=== PATIENT | male | born 1970 | race Hispanic/Latino ===

== ENCOUNTER 2019-02-26 08:42 | Day surgery (SDC) | payer OTHER ==
[2019-02-24 17:00] VITALS: BP 151/82
[2019-02-24 17:23] LABS: BASOPHILS % (AUTO) 0.6 % (0.0-5.0); EOSINOPHILS % (AUTO) 4.6 % (0.0-8.0); HEMATOCRIT 40.2 % (42-54); LYMPHOCYTES % (AUTO) 24.1 % (21.0-51.0); MEAN CORPUSCULAR HEMOGLOBIN 31.5 pg (27.0-33.0); MEAN CORPUSCULAR HGB CONC 34.4 g/dL (32.0-36.0); MEAN CORPUSCULAR VOLUME 91.6 fL (79-99); MONOCYTES % (AUTO) 8.2 % (3.0-13.0); NEUTROPHILS % (AUTO) 62.5 % (40.0-77.0); PLATELET COUNT (AUTO) 215 K/uL (130-400); RED BLOOD CELL COUNT(AUTO) 4.38 MIL/uL (4.50-6.20); RED CELL DISTRIBUTION WIDTH 13.4 % (11.0-15.5); WHITE BLOOD COUNT (AUTO) 6.9 K/uL (4.8-10.8)
[2019-02-24 17:24] LABS: APPEARANCE,URINE Clear (CLEAR); BILIRUBIN,URINE Negative (NEGATIVE); COLOR,URINE Yellow (YELLOW); GLUCOSE, URINE (UA) Negative (NEGATIVE); KETONES,URINE Negative (NEGATIVE); LEUKOCYTE ESTERASE ,URINE Negative (NEGATIVE); NITRATE,URINE Negative (NEGATIVE); OCCULT BLOOD,URINE Negative (NEGATIVE); PROTEIN,URINE Negative (NEGATIVE); UROBILINOGEN,URINE 0.2 mg/dL (0.2-1.0)
[2019-02-24 17:33] LABS: CREATININE 2.3 mg/dL (0.5-1.5); POTASSIUM 4.9 mmol/L (3.5-5.1)
--- NOTE | 2019-02-25 13:45 | NUR ---
CONSULT: MC AT DR. FAITH OFFICE MADE AWARE OF ABNORMAL LAB - BUN: 32 H AND CREAT: 2.3 H. STATED PATIENT HAS CHRONIC RENAL INSUFFICIENCY, WILL NOTIFY DR. CONTEH.
--- NOTE | 2019-02-25 13:45 | NUR ---
CONSULT: DR. NGUYEN MADE AWARE OF ABNORMAL LABS - BUN: 32 H, CREAT.: 2.3 H. MADE AWARE OF PATIENT HAVING CHRONIC RENAL INSUFFICIENCY AND NOT ORDERS GIVEN.
--- NOTE | 2019-02-25 14:00 | NUR ---
LABS: DR. CONTEH REQUESTING FOR LAB TO BE FAXED TO HIS OFFICE REGARDING BUN AND CREAT. FAXED LABS TO DR. CONTEH OFFICE AND NOTED THAT DR. NGUYEN - ANESTHESIOLOGIST MADE AWARE OF ABNORMAL LAB AND NO ORDERS GIVEN.
[~2019-02-26] VITALS: Ht 185.4 cm; Wt 105.1 kg
[2019-02-26] VITALS (17 sets, daily range): BP systolic 127–158; BP diastolic 65–93
[~2019-02-26 08:42] MED LIST: AEC81 PO; AMLO5TAB9 PO; CLON0.1T PO; FURO40TA5 PO; LABE200T5 PO; LISI40TA4 PO; SPIR25TA6 PO
[2019-02-26] MEDS ORDERED: LACTATED RINGERS 1000ML 1,000 ML IV ONE (09:38)
[2019-02-26] MEDS ORDERED: LIDOCAINE PF 2% 5ML ABBOJECT ONE (09:55)
[2019-02-26] MEDS ORDERED: MIDAZOLAM HCL 1 MG/ML 2ML VIAL ONE (09:56)
[2019-02-26] MEDS ORDERED: PROPOFOL 10 MG/ML 20ML VIAL IV ONE (09:56)
[2019-02-26] MEDS ORDERED: ROCURONIUM 10MG/1ML SYR 10 MG/ML ML ONE (09:56)
[2019-02-26] MEDS ORDERED: FENTANYL CITRATE PF 50 MCG/1 ML 2ML VIAL ONE ×2 (09:57→10:32)
[2019-02-26] MEDS ORDERED: BUPIVACAINE/PF 0.25% 30ML VIAL IJ ONE (10:12)
[2019-02-26] MEDS ORDERED: GLYCOPYRROLATE 1 MG/5 ML SYRINGE ONE (10:17)
[2019-02-26] MEDS ORDERED: ONDANSETRON HCL 4 MG/2 ML VIAL ONE (11:15)
== END 2019-02-26 13:25 | disposition home or self-care (01) ==
LOC: DAH 08:42
PROVIDERS: ATTEND Surgery
DX: K42.9 Umbilical hernia without obstruction or gangrene (principal); I13.0 Hypertensive heart and chronic kidney disease with heart failure and stage 1 through stage 4 chronic kidney disease, or unspecified chronic kidney disease; N18.9 Chronic kidney disease, unspecified; I50.9 Heart failure, unspecified
CPT/HCPCS: 36415; 49585; 80048; 81003; 85025; A4450; A4452; A4606; C1781; J2001; J2250; J2405; J2704; J3010 ×2; J3490 ×2; J7120 ×2

== ENCOUNTER 2019-06-22 10:52 | Emergency (ER) | payer OTHER ==
[2019-06-22] MEDS ORDERED: ASPIRIN 325 MG TABLET ONE (11:05)
[2019-06-22 11:16] LABS: BASOPHILS % (AUTO) 1.2 % (0.0-5.0); EOSINOPHILS % (AUTO) 5.2 % (0.0-8.0); HEMATOCRIT 43.9 % (42-54); LYMPHOCYTES % (AUTO) 26.6 % (21.0-51.0); MEAN CORPUSCULAR HEMOGLOBIN 31.5 pg (27.0-33.0); MONOCYTES % (AUTO) 10.9 % (3.0-13.0); NEUTROPHILS % (AUTO) 56.1 % (40.0-77.0); PLATELET COUNT (AUTO) 199 K/uL (130-400); RED BLOOD CELL COUNT(AUTO) 4.88 MIL/uL (4.50-6.20); RED CELL DISTRIBUTION WIDTH 12.9 % (11.0-15.5); WHITE BLOOD COUNT (AUTO) 6.9 K/uL (4.8-10.8)
[2019-06-22 11:26] LABS: CREATININE 2.5 mg/dL (0.5-1.5); POTASSIUM 3.1 mmol/L (3.5-5.1)
[2019-06-22 11:31] LABS: BILIRUBIN,TOTAL 0.9 mg/dL (0.2-1.0); TOTAL PROTEIN, SERUM 7.9 g/dL (6.0-8.3)
== END 2019-06-22 15:03 | disposition home or self-care (01) ==
LOC: EDH 10:52
DX: R07.89 Other chest pain (principal); M79.89 Other specified soft tissue disorders; I10 Essential (primary) hypertension
CPT/HCPCS: 36415; 80053; 84484; 85025; 93005

== ENCOUNTER 2019-09-16 17:31 | Emergency (ER) | payer OTHER ==
[2019-09-16] MEDS ORDERED: LABETALOL HCL 200 MG TABLET ONE (17:44)
== END 2019-09-16 18:38 | disposition home or self-care (01) ==
LOC: EDH 17:31
DX: R04.0 Epistaxis (principal); I10 Essential (primary) hypertension
CPT/HCPCS: 99282

== ENCOUNTER → 2019-11-02 | Outpatient (CLI) | payer OTHER ==
[~2019-11-02] VITALS: Ht 170.2 cm; Wt 108.4 kg
[~2019-11-02] MED LIST changes: +REGADENOSON 0.4 MG/5 ML PF SYG IVP SCH
== END | disposition home or self-care (01) ==
LOC: SHCH 08:47
PROVIDERS: ATTEND Internal Medicine Cardiovascular Disease
DX: R94.39 Abnormal result of other cardiovascular function study (principal)
CPT/HCPCS: 78452; 93017; 96374; A9500 ×2; J2785

== ENCOUNTER → 2024-09-28 | Outpatient (CLI) | payer OTHER ==
[~2024-09-28] MED LIST changes: +AMLO-257 PO; -AMLO5TAB9 PO; -LABE200T5 PO; +LABE200T7 PO; -LISI40TA4 PO; +LISI40TA9 PO; -REGADENOSON 0.4 MG/5 ML PF SYG IVP SCH
== END | disposition home or self-care (01) ==
LOC: SHCH 08:19
PROVIDERS: ATTEND Internal Medicine Cardiovascular Disease
DX: I12.9 Hypertensive chronic kidney disease with stage 1 through stage 4 chronic kidney disease, or unspecified chronic kidney disease (principal); N18.32 Chronic kidney disease, stage 3b
CPT/HCPCS: 93975